=== PATIENT | female | born 1975 | race Caucasian/White ===

== ENCOUNTER 2018-03-16 16:25 | Emergency (ER) | payer BC, OTHER ==
--- NOTE | 2018-03-16 17:11 | ED ---
General Adult HPI - General Chief complaint: Wound/Laceration Stated complaint: [facility]-Finger Lac Source: patient, RN notes reviewed Mode of arrival: ambulatory Limitations: no limitations - History of Present Illness Initial comments: Patient is a 42-year-old female who presents the emergency department with complaint of left index finger laceration that occurred at 2 PM today while she was at work. She reports that she was folding a metal ladder and caught her finger. She went to [facility] where the wound was numbed, cleaned and explored. The provider at [facility] was concerned for possible extensor tendon involvement of the dorsal wound and did not suture the wounds. She reports her finger is still numb from [facility]. Denies numbness or tingling prior to [facility]. Her Tdap was updated at [facility]. Denies head injury or loss of consciousness. Denies any other injuries. Patient denies any recent fever, chills, shortness of breath, chest pain, back pain, abdominal pain, nausea or vomiting, headaches or visual changes , or any other complaints. - Related Data Previous Rx's Medication Instructions Recorded HYDROcodone/APAP 5-325MG [[place] 1 tab PO Q6HR PRN #20 tab 09/01/15 5-325] Orphenadrine [Norflex] 100 mg PO Q12H PRN #12 tablet.er 09/01/15 Allergies Allergy/AdvReac Type Severity Reaction Status Date / Time morphine AdvReac Unknown Verified 03/16/18 16:39 Review of Systems ROS Statement: Those systems with pertinent positive or pertinent negative responses have been documented in the HPI. ROS Other: All systems not noted in ROS Statement are negative. Past Medical History Past Medical History: No Reported History History of Any Multi-Drug Resistant Organisms: None Reported Past Surgical History: Section, Orthopedic Surgery Additional Past Surgical History / Comment(s): CERVICAL ABLASION, FOOT Past Psychological History: No Psychological Hx Reported Smoking Status: Never smoker Past Alcohol Use History: None Reported Past Drug Use History: None Reported General Exam Limitations: no limitations General appearance: alert, in no apparent distress Head exam: Present: atraumatic, normocephalic Eye exam: Present: normal appearance Respiratory exam: Present: normal lung sounds bilaterally. Absent: wheezes, rales, rhonchi Cardiovascular Exam: Present: regular rate, normal rhythm Extremities exam: Present: normal capillary refill, other (Patient able to maintain finger extension against resistance of distal, middle and proximal phalanges of the left index finger. Patient states she was able to move her finger normally prior to numbing IHS.) Neurological exam: Present: alert, oriented X3 Skin exam: Present: warm, dry Course Vital Signs 03/16/18 03/16/18 16:37 19:11 Temperature 98.3 F 97.6 F Pulse Rate 79 77 Respiratory 20 18 Rate Blood Pressure 121/85 116/64 O2 Sat by Pulse 98 99 Oximetry Procedures - Laceration Laceration #1 Consent Obtained: verbal consent Indication: laceration Site: hand Size (cm): 2 Description: irregular Depth: simple, single layer Sedation/Analgesia: none Anesthetic Used: lidocaine 1%, without epi Anesthesia Technique: nerve block Amount (mls): 4 (4 total) Pre-repair: irrigated extensively Type of Sutures: nylon Size of Sutures: 4-0 Number of Sutures: 4 Technique: simple, interrupted Patient Tolerated Procedure: well, no complications Laceration #2 Consent Obtained: verbal consent Indication: laceration Site: hand Size (cm): 1 Description: irregular Depth: simple, single layer Sedation/Analgesia: none Anesthetic Used: lidocaine 1%, without epi Anesthesia Technique: nerve block Amount (mls): 4 (4 total) Pre-repair: irrigated extensively Type of Sutures: nylon Size of Sutures: 4-0 Number of Sutures: 3 Technique: simple, interrupted Patient Tolerated Procedure: well, no complications - Nerve Block Consent Obtained: verbal consent Local Anesthetic Used: Lidocaine 1% Amount of anesthesia used: 4 Side: left Nerve Blocks: digital Procedure Successful: Yes Complications: none Patient Tolerated Procedure: well, no complications Medical Decision Making - Medical Decision Making X-rays of the left index finger are negative. Two lacerations were sutured closed. Patient is to follow-up with orthopedics. Case discussed in detail with attending physician Dr. Gomez. Disposition Clinical Impression: Laceration Disposition: HOME SELF-CARE Condition: Good Instructions (If sedation given, give patient instructions): Care For Your Stitches (ED) Additional Instructions: Follow-up with orthopedics and your PCP in 1 to 2 days. Return to the emergency department if there is increase in redness, swelling, drainage or fevers as this could indicate an infection. Return to the emergency department or follow-up with your PCP in 14 days for suture removal. Is patient prescribed a controlled substance at d/c from ED?: No Referrals: Alisa Bolton MD [Primary Care Provider] - 1-2 days Roman Clayton MD [Medical Doctor] - 1-2 days Time of Disposition: 19:06
--- NOTE | 2018-03-16 17:34 | XR ---
EXAMINATION TYPE: XR finger LT DATE OF EXAM: 03/16/2018 COMPARISON: NONE HISTORY: Laceration TECHNIQUE: Single view FINDINGS: I see no fracture nor dislocation. Joint spaces are normal. There is no sign of a foreign b nelida. IMPRESSION: Negative left index finger limited exam.
[2018-03-16] MEDS ORDERED: LIDOCAINE 1% INJ 10MG/ML (20 ML MDV) SQ STA (17:48)
[2018-03-16] MEDS ORDERED: ACETAMINOPHEN TAB 500 MG TAB PO STA (17:48)
[2018-03-16 19:12] VITALS: BP 116/64; PULSE 77; RESP 18; TEMP 97.6
== END 2018-03-16 19:12 | disposition home or self-care (01) ==
LOC: EC 16:25
DX: S61.211A Laceration without foreign body of left index finger without damage to nail, initial encounter (principal); Z88.5 Allergy status to narcotic agent; W23.0XXA Caught, crushed, jammed, or pinched between moving objects, initial encounter; Y92.69 Other specified industrial and construction area as the place of occurrence of the external cause; Y99.0 Civilian activity done for income or pay
CPT/HCPCS: 73140; 99283; 12002; J2001

== ENCOUNTER → 2018-06-15 | Outpatient (CLI) | payer BC, OTHER ==
--- NOTE | 2018-06-15 09:02 | MR ---
EXAMINATION TYPE: MR lumbar spine wo con DATE OF EXAM: 06/15/2018 COMPARISON: NONE HISTORY: Peripheral demyelinating neuropathy per order. Numbness into feet for 2 to 3 months per will ent. TECHNIQUE: Multiplanar, multisequence imaging of the lumbar spine is performed without IV contrast. FINDINGS: Sagittal images of the lumbar spine show vertebral body heights and alignment to appear sat isfactory. There is disc desiccation L4-L5 level otherwise the intervertebral discs demonstrate lalitha l heights and hydration. Posterior disc herniation L4-L5 level as seen on sagittal images. The conus medullaris is normal in position and signal ending mid L1 level. Prominence of spinal canal or dural ectasia into the sacrum noted causing mass effect along posterior margin or scalloping is noted. The bone marrow signal intensity is within normal limits. Axial images show the T12-L1, L1-L2, L2-L3, and L3-L4 levels also appear within normal limits. Axial images at the L4-L5 level show mild broad disc bulge with right paracentral disc extrusion exte nding to mid L4 vertebral body level sagittal image 7, there is effacement of the anterior thecal sac , bilateral neural foramina are patent. Mild facet arthropathy bilaterally is present. Axial images at the L5-S1 level mild facet arthropathy with spinal canal is preserved and bilateral n eural foramina are patent. No suspicious incidental retroperitoneal findings are seen. IMPRESSION: Disc herniation L4-L5 level. Vertebral scalloping in the visualized upper sacrum due to d ural ectasia partially imaged.
== END ==
LOC: RADMRIMAIN 08:19
PROVIDERS: ATTEND Internal Medicine Rheumatology
DX: M51.26 Other intervertebral disc displacement, lumbar region (principal)
CPT/HCPCS: 72148